=== PATIENT | male | born 1965 | race Caucasian/White ===

== ENCOUNTER 2020-02-01 08:31 | Emergency (ER) | payer BC, SELFPAY ==
--- NOTE | ~2020-02-01 | CT_ITS ---
EXAMINATION: CT abdomen pelvis wo con EXAM DATE: 02/01/2020 09:27 INDICATION: Left flank pain. TECHNIQUE: Spiral CT of the abdomen and pelvis was performed without contrast. Axial, coronal and sag ittal images were reviewed. The dose-length product (DLP) for this examination was 446.20 mGy-cm. T he exposure was tailored according to patient size (auto mA exposure control), and iterative reconstr uction (ASIR) was used as additional dose reduction technique. Comparison is made to prior examinatio n from 12/11/2017. FINDINGS: There is a 4 mm stone at the left ureterovesicular junction on axial image 158 causing mild hydroureteronephrosis and perinephric fat stranding, mild obstructive nephropathy. Several additiona l punctate and small calyceal stones bilaterally. The prostate is unremarkable. The bladder is unre markable. The liver, spleen, adrenal glands and pancreas are unremarkable. The gallbladder is contr acted but otherwise unremarkable. There is no retroperitoneal or pelvic lymphadenopathy. There is mild scattered arteriosclerotic disease. There is tiny umbilical fat-containing hernia. The appendix is normal. The stomach and small bowel are unremarkable. There is expected amount of c olonic stool. No free intraperitoneal gas. The heart is normal in size. There are no pericardial or pleural effusions. The lung bases are unremarkable. The bones are unremarkable. IMPRESSION: 1. Left UVJ 4 mm stone, mild obstructive nephropathy. 2. Small bilateral nephrolithiasis. Urologist consultants would appreciate KUB as baseline for follow-up, treatment planning. Reviewed, dictated and finalized at location G.
[2020-02-01 08:36] VITALS: BP 116/87; PULSE 107; RESP 18; TEMP 36.4; O2SAT 99
--- NOTE | 2020-02-01 08:51 | ED.BACK ---
HPI - Back Pain/Injury General Chief Complaint: Back Pain/Injury Stated Complaint: left flank pain h/o kidney stone Time Seen by Provider: 02/01/20 08:51 History of Present Illness HPI Narrative: Intermittent left flank pain radiating into the LLQ for the past 5 days. Associated with nausea. Feels like previous kidney stones. Tried ibuprofen without relief. Related Data Home Medications Medication Instructions Recorded Confirmed simvastatin 20 mg tablet 20 mg PO DAILY 09/10/19 Allergies Allergy/AdvReac Type Severity Reaction Status Date / Time Influenza Virus Vaccines Allergy Unknown cough Verified 02/01/20 09:13 Review of Systems Review of Systems: All systems reviewed & are unremarkable except as noted in HPI and below Constitutional: Constitutional: Denies fever(s) Gastrointestinal: Gastrointestinal: Reports abdominal pain, Reports constipation, Reports nausea and Denies vomiting Genitourinary: Genitourinary: Denies hematuria and Denies dysuria Musculoskeletal: Musculoskeletal: Reports back pain [facility] Past Medical History Medical History (Updated 02/01/20 @ 11:12 by Ad Mtz MD) Essential (primary) hypertension Kidney stone Prediabetes Social History Social History Smoking status: Never smoker Alcohol intake: current Gender identity (if verbalized by the patient): Male Exam Const: General: healthy appearing, no acute distress and alert Orientation/consciousness: patient oriented x3 HENMT: Head: normal to inspection Neck: Neck: normal visual inspection and no lymphadenopathy Chest: Chest palpation & inspection: no tenderness Resp: Effort & Inspection: normal respiratory effort Auscultation: clear to auscultation bilaterally, no rales, no rhonchi and no wheezes Cardio: Jugular venous distension: no JVD Rate: regular rate Rhythm: regular rhythm Heart sounds: no murmurs GI: Inspection: non-distended GI Palp: Yes Soft to palpation and No Tenderness to palpation present (GI) Skin: General skin exam: normal color Neuro: General: patient oriented x3 and moves all extremities Speech: normal speech Extrem: General: no edema Psych: Appearance: well kempt Affect: normal affect Course Vital Signs Vital signs: Vital Signs Temperature 36.4 C 02/01/20 08:36 Pulse Rate 107 H 02/01/20 08:36 Respiratory Rate 18 02/01/20 08:36 Blood Pressure 116/87 02/01/20 08:36 Pulse Oximetry 99 02/01/20 08:36 Temperature 36.4 C 02/01/20 08:36 Pulse Rate 107 H 02/01/20 08:36 Respiratory Rate 18 02/01/20 08:36 Blood Pressure 116/87 02/01/20 08:36 Pulse Oximetry 99 02/01/20 08:36 MDM - Back Pain/Injury Medical Records Attestation: I reviewed the patient's medical records. Lab Data Attestation: I reviewed the patient's lab results. Result diagrams: 02/01/20 09:03 02/01/20 09:05 Labs: Lab Results 02/01/20 02/01/20 02/01/20 Range/Units 09:03 09:03 09:05 WBC 10.4 H (4.5-10.0) K/mm3 RBC 5.29 (4.6-6.20) M/mm3 Hgb 16.2 (14.0-18.0) g/dL Hct 47.6 (42.0-52.0) % MCV 90.0 (80-100) fl MCH 30.6 (26-34) pg MCHC 34.0 (32-36) g/dl RDW 12.3 (11.5-14.5) % Plt Count 269 (150-375) k/mm3 MPV 9.7 (7.4-10.4) fl Immature Gran % (Auto) 0.2 (0-0.5) % Neut % (Auto) 81.2 H (45.5-73.1) % Lymph % (Auto) 8.9 L (18.3-44.2) % [place] % (Auto) 8.5 (2.6-8.5) % Eos % (Auto) 0.8 (0-4.4) % Baso % (Auto) 0.4 (0.2-1.2) % Lymph # (Auto) 0.92 (0.9-3.2) K/mm3 [place] # (Auto) 0.9 H (0.1-0.6) K/mm3 Eos # (Auto) 0.1 (0-0.3) K/mm3 Baso # (Auto) 0.0 (0.0-0.1) K/mm3 Abs Immat Gran (auto) 0.02 (0.00-0.031) K/mm3 Absolute Neuts (auto) 8.5 H (1.3-6.7) K/mm3 Absolute Nucleated RBC 0.0 (0.0-0.012) K/mm3 Nucleated RBC % 0.0 (0.0-0.2) % Sodium 134 L 134 L (137-145) mmol/L Potassium 3.
[2020-02-01 09:13] LABS: Basophils Percent Auto 0.4 % (0.2-1.2); Eosinophils Absolute Auto 0.1 K/mm3 (0-0.3); Eosinophils Percent Auto 0.8 % (0-4.4); Hematocrit 47.6 % (42.0-52.0); Hemoglobin 16.2 g/dL (14.0-18.0); Immature Granulocyte Absolute 0.02 K/mm3 (0.00-0.031); Immature Granulocyte Percent A 0.2 % (0-0.5); Lymphocytes Absolute Auto 0.92 K/mm3 (0.9-3.2); Lymphocytes Percent Auto 8.9 % (18.3-44.2); Mean Corpuscular Hemoglobin 30.6 pg (26-34); Mean Platelet Volume 9.7 fl (7.4-10.4); Monocytes Absolute Auto 0.9 K/mm3 (0.1-0.6); Monocytes Percent Auto 8.5 % (2.6-8.5); Neutrophils Absolute Auto 8.5 K/mm3 (1.3-6.7); Neutrophils Percent Auto 81.2 % (45.5-73.1); Platelet Count Result 269 k/mm3 (150-375); Red Blood Count 5.29 M/mm3 (4.6-6.20); Red Cell Distribution Width 12.3 % (11.5-14.5); White Blood Count 10.4 K/mm3 (4.5-10.0)
[2020-02-01 09:27] LABS: Alanine Aminotransferase 18 U/L (4-50); Albumin Level 4.4 g/dL (3.5-5.1); Alkaline Phosphatase 52 U/L (38-126); Aspartate Amino Transferase 22 U/L (17-59); Bilirubin,Total 0.7 mg/dL (0.2-1.3); Blood Urea Nitrogen 22 mg/dL (9-20); Calcium 9.4 mg/dL (8.4-10.2); Carbon Dioxide 27 mmol/L (22-30); Chloride 96 mmol/L (98-107); Estimated CRCL calculation 73 ml/min; Estimated Glomerular Filt Rate > 60; Glucose 185 mg/dL (75-110); Lipase 44 U/L (23-300); Sodium 134 mmol/L (137-145)
[2020-02-01 09:28] LABS: Blood Urea Nitrogen 22 mg/dL (9-20); Calcium 9.4 mg/dL (8.4-10.2); Carbon Dioxide 26 mmol/L (22-30); Chloride 97 mmol/L (98-107); Estimated CRCL calculation 73 ml/min; Estimated Glomerular Filt Rate > 60; Glucose 182 mg/dL (75-110); Sodium 134 mmol/L (137-145)
[2020-02-01] MEDS: KETOROLAC 30 MG/ML VIAL (*BKC) IV PUSH (10:02)
[2020-02-01] MEDS: SODIUM CHLORIDE 0.9% IV 1,000 ML 999 ML IV CONT (10:03)
[2020-02-01] MEDS: TAMSULOSIN HCL 0.4 MG CAPSULE PO (10:10)
[2020-02-01 11:20] LABS: Add Urine Microscopic? YES; Appearance Urine Clear (Clear); Bilirubin Urine Negative (Negative); Blood Urine 2+ (Negative); Color Urine Yellow (Yellow); Glucose Urine UA Negative (Negative); Ketones Urine 1+ mg/dL (Negative); Leukocyte Esterase Ur Trace LEU/UL (Negative); Mucus Urine Few /lpf; Nitrate Urine Negative (Negative); Protein Urine 1+ mg/dL (Negative); RBC Urine 21-50 /hpf (0-2); Specific Grav Ur 1.019 (1.001-1.035); Squamous Epithelial Cell Urine Rare /hpf (Few); Urobilinogen Urine Negative mg/dL (<2.0); WBC Urine 16-20 /hpf
== END 2020-02-01 11:35 | disposition home or self-care (01) ==
PROVIDERS: Emergency Provider Emergency Medicine; PCP Family Medicine
DX: N13.8 Other obstructive and reflux uropathy (principal); N20.2 Calculus of kidney with calculus of ureter; I10 Essential (primary) hypertension; Z87.442 Personal history of urinary calculi; R73.03 Prediabetes
CPT/HCPCS: 36415; 74176; 80048; 80053; 81001; 83690; 85025; 87086; 96361; 96374; 96375; 99284; A9270; J1885; J3010; J7030

== ENCOUNTER → 2020-10-18 01:09 | Outpatient (CLI) | payer BC, SELFPAY ==
[2020-10-18 19:13] LABS: SARS-CoV-2 RNA PCR Negative
== END ==
PROVIDERS: PCP Family Medicine; Visit Provider Internal Medicine Gastroenterology
DX: Z01.812 Encounter for preprocedural laboratory examination (principal); Z20.822 Contact with and (suspected) exposure to COVID-19
CPT/HCPCS: C9803; U0003; U0005

== ENCOUNTER 2020-10-21 01:28 | Day surgery (SDC) | payer BC, SELFPAY ==
[2020-10-07 15:02] VITALS: BMI 25.7
[2020-10-21 11:40] VITALS: BP 138/81; PULSE 74; RESP 20; TEMP 36.6; O2SAT 98; BMI 25.9
[2020-10-21] MEDS: LACTATED RINGERS 1,000 ML 150 ML IV CONT (11:50)
--- NOTE | 2020-10-21 11:57 | WPDANESEPPF ---
Anes - Initial Pre Proc Eval Procedure: Operation Date: 10/21/20 13:30 Proposed Procedures p Screening Colonoscopy - Brina Perez MD Date/Time: 10/21/20 11:57 Surgeon: Brian Perez MD Pre Op Diagnosis: Neoplasm Screening Patient Data Age: 55 Gender: M Height: 6 ft Weight: 86.6 kg Last Vital Signs Temp 97.9 F 10/21/20 11:40 Pulse 74 10/21/20 11:40 Resp 20 10/21/20 11:40 BP 138/81 10/21/20 11:40 Pulse Ox 98 10/21/20 11:40 Allergies Allergy/AdvReac Type Severity Reaction Status Date / Time No Known Allergies Allergy Verified 10/21/20 11:39 Home Medications Medication Instructions Recorded Confirmed Type losartan 50 mg-hydrochlorothiazide 1 tablet PO DAILY #90 tablet 05/09/20 10/07/20 Rx 12.5 mg tablet simvastatin 20 mg tablet 20 mg PO DAILY #90 tablet 05/09/20 10/07/20 Rx sodium,potassium,mag sulfates 17.5 See Rx Instructions PO .COMPLEX 09/29/20 Rx gram-3.13 gram-1.6 gram oral soln #354 ml Patient hx anesthesia problems: none Family hx anesthesia problems: none PMFSH Past Medical History Medical History Essential (primary) hypertension Kidney stone Prediabetes Family History Family History Mother Hypertension Father Family history of elevated blood lipids Social History Social History Smoking status: Never smoker Alcohol intake: current Drinks per week: 3 Alcohol use details: SHOTS WHISKEY Substance use: never Substance use type: does not use Living arrangements: with family Gender identity (if verbalized by the patient): Male Spiritual care concerns: No Anes - Eval Final PreProcedure Day of Procedure 10/21/20 11:57 Patient weight: normal Heart: regular rate and rhythm Lungs: clear to auscultation Airway: Mallampati scale class II Neurological: alert and oriented Last oral intake: >/= 8 hours ASA classification: II Emergent: no Anesthetic plan: proceed Anesthesia type and monitoring: general GIVS and standard monitoring Informed Consent: The patient's anesthetic plan and its attendant risks and benefits were discussed with the patient/family/POA. Questions were solicited and answers provided to the satisfaction of the patient/family/POA.
--- NOTE | 2020-10-21 12:59 | PM.HPGS ---
History of Present Illness History of Present Illness Consent: Risks, benefits, and alternatives have been discussed and questions answered. Patient agrees to proceed with procedure. Chief complaint: Neoplasm Screening Narrative: Joel Gomez is a 55 year old male with colon polyps in 2016 Review of Systems Constitutional: Constitutional: Denies headache(s) and Denies weakness Eyes: Eyes: Denies blurry vision ENT: Reports Normal hearing present, Denies headache(s) and Denies neck pain Cardiovascular: Cardiovascular: Denies chest pain and Denies dyspnea Respiratory: Respiratory: Denies dyspnea Gastrointestinal: Gastrointestinal: Reports no additional gastrointestinal complaints Genitourinary: Genitourinary: Denies dysuria Musculoskeletal: Musculoskeletal: Denies neck pain Integumentary/Breasts: Skin/Breast: Denies dry skin Neurologic: Reports Normal hearing present, Denies headache(s) and Denies weakness Psychiatric: Psychiatric: Denies anxiety Endocrine: Endocrine: Denies change in body appearance Hematologic/Lymphatic: Hematologic/Lymphatic: Denies easy bleeding Allergic/Immunologic: Allergic/Immunologic: Denies urticaria [facility] Past Medical History Medical History Essential (primary) hypertension Kidney stone Prediabetes Family History Family History Mother Hypertension Father Family history of elevated blood lipids Social History Social History Smoking status: Never smoker Alcohol intake: current Drinks per week: 3 Alcohol use details: SHOTS [place]ISKEY Substance use: never Substance use type: does not use Living arrangements: with family Gender identity (if verbalized by the patient): Male Spiritual care concerns: No Meds Home Medications and Allergies Home Medications Medication Instructions Recorded Confirmed Type losartan 50 mg-hydrochlorothiazide 1 tablet PO DAILY #90 tablet 05/09/20 10/07/20 Rx 12.5 mg tablet simvastatin 20 mg tablet 20 mg PO DAILY #90 tablet 05/09/20 10/07/20 Rx sodium,potassium,mag sulfates 17.5 See Rx Instructions PO .COMPLEX 09/29/20 Rx gram-3.13 gram-1.6 gram oral soln #354 ml Allergies Allergy/AdvReac Type Severity Reaction Status Date / Time No Known Allergies Allergy Verified 10/21/20 11:39 Vital Signs Vital Signs - 24 hr 10/21/20 11:40 Temperature 97.9 F Pulse Rate 74 Respiratory Rate 20 Blood Pressure 138/81 Pulse Oximetry 98 Exam Const: General: comfortable and no acute distress HENMT: General nose exam: Normal nares present Eyes: General: appearance normal, both eyes and all related structures Neck: Neck: no JVD Resp: Auscultation: clear to auscultation bilaterally Cardio: Rate: regular rate Rhythm: regular rhythm GI: Inspection: non-distended GI Palp: Yes Soft to palpation Skin: General skin exam: normal color Neuro: General: gait normal Speech: normal speech Extrem: General: normal to inspection Psych: Mental Status: mental status grossly normal Assessment and Plan Assessment and plan (1) Polyp of colon: Qualifiers: Colon polyp type: unspecified Colon location: unspecified part of colon Qualified Code(s): K63.5 - Polyp of colon Code(s): K63.5 - Polyp of colon Status: Acute Assessment and Plan: proceed with colonoscopy
[2020-10-21 13:23] VITALS: BP 105/64; PULSE 72; RESP 18; O2SAT 97
[2020-10-21 13:33] VITALS: BP 104/65; PULSE 69; RESP 18; O2SAT 98
[2020-10-21 13:43] VITALS: BP 124/79; PULSE 69; RESP 18; O2SAT 98
== END 2020-10-21 13:55 | disposition home or self-care (01) ==
PROVIDERS: PCP Family Medicine; Visit Provider Internal Medicine Gastroenterology
PROC: 0DJD8ZZ Inspection of Lower Intestinal Tract, Via Natural or Artificial Opening Endoscopic (ICD-10-PCS; CPT 45378; principal; 2020-10-21 13:30)
DX: Z12.11 Encounter for screening for malignant neoplasm of colon (principal); D12.5 Benign neoplasm of sigmoid colon; D12.3 Benign neoplasm of transverse colon; K64.8 Other hemorrhoids; I10 Essential (primary) hypertension; R73.03 Prediabetes
CPT/HCPCS: 45380; 45385; 88305; J2704; J7120

== ENCOUNTER 2023-09-12 12:56 | Emergency (ER) | payer BC, SELFPAY ==
[2023-09-12 13:39] VITALS: BP 151/76; PULSE 78; RESP 16; TEMP 36.7; O2SAT 97
--- NOTE | 2023-09-12 15:51 | ED.WOUNDLAC ---
HPI - Wound/Laceration General Chief Complaint: Wound/Laceration Stated Complaint: L thumb lac Time Seen by Provider: 09/12/23 14:45 History of Present Illness HPI narrative: 58-year-old male presenting with a laceration to his left hand. States this between his thumb and 1st finger. States that he was breaking down boxes with a snuff box finisher when he had his left hand. Denies any numbness or weakness of his thumb or fingers. Tdap is up-to-date. Related Data Allergies Allergy/AdvReac Type Severity Reaction Status Date / Time No Known Allergies Allergy Verified 09/12/23 14:37 Review of Systems Review of Systems: All systems reviewed & are unremarkable except as noted in HPI and below PMFSH Past Medical History Medical History Essential (primary) hypertension Kidney stone Prediabetes Family History Family History Mother Hypertension Father Family history of elevated blood lipids Social History Social History Smoking status: Never smoker Alcohol intake: current Drinks per week: 3 Alcohol use details: SHOTS [place]ISKEY Substance use: never Substance use type: does not use Living arrangements: with family Gender identity (if verbalized by the patient): Male Spiritual care concerns: No Exam Narrative: GENERAL: Well-appearing, well-nourished, and in no acute distress. HEAD: Normocephalic, atraumatic. EYES: PERRLA and EOMI. ENT: Grossly unremarkable NECK: Supple. CHEST: No respiratory distress. HEART: Regular rate and rhythm EXTREMITIES: Normal range of motion. SKIN: Warm, dry, 2 cm laceration between first and second left digit, no tendon involvement, ROM intact, brisk cap refill NEURO: Alert and oriented x3. PSYCH: Normal mood and affect. Course Vital Signs Vital signs: Vital Signs Temperature 98.1 F 09/12/23 13:39 Pulse Rate 78 09/12/23 13:39 Respiratory Rate 16 09/12/23 13:39 Blood Pressure 151/76 H 09/12/23 13:39 Pulse Oximetry 97 09/12/23 13:39 Temperature 98.1 F 09/12/23 13:39 Pulse Rate 78 02/12/24 13:39 Respiratory Rate 16 09/12/23 13:39 Blood Pressure 151/76 H 09/12/23 13:39 Pulse Oximetry 97 09/12/23 13:39 Procedures Laceration Laceration 1: Date: 09/12/23 Time: 16:08 Site: hand Side (If applicable): left Size (cm): 2 Description: linear Local Anesthetic: lidocaine 1% Pre-repair: wound explored and irrigated ====== Skin Level ====== Skin layer closed with: nylon Size (cm): 3-0 Number of sutures: 4 Technique: simple, interrupted ====== Subcutaneous Layer ====== ====== Muscle Layer ====== ====== Tendon Layer ====== MDM - Wound/Laceration MDM Narrative Medical decision making narrative: 58-year-old male presenting with laceration to his left thumb. Vitals stable. Exam remarkable for the above. Laceration repaired without complication. Discussed appropriate supportive care and return precautions. Advised he other removed in 10-14 days. Patient is agreeable this plan. Discharged in stable condition. Differential Diagnosis Differential diagnosis: Likely laceration Critical Care Time Critical Care Time Critical Care Time: No Discharge Plan Discharge Clinical Impression: Laceration Patient Disposition: Home, Self-Care Condition: Stable Instructions: Antibiotic Form, Care For Your Stitches (ED), Laceration (ED) Additional Instructions: Please have your stitches removed in 10-14 days. If you develop signs of infection such as redness, fevers, purulent drainage, or other concerning symptoms arise, please return to the ER. Prescriptions: No Action Suprep Bowel Prep Kit 17.5-3.13-1.6 gram recon soln See Rx Instructions PO .CO
== END 2023-09-12 16:48 | disposition home or self-care (01) ==
PROVIDERS: Emergency Provider Emergency Medicine
DX: S61.412A Laceration without foreign body of left hand, initial encounter (principal); I10 Essential (primary) hypertension; R73.03 Prediabetes; Z87.442 Personal history of urinary calculi; W27.8XXA Contact with other nonpowered hand tool, initial encounter
CPT/HCPCS: 12001; 99282